=== PATIENT | male | born 1955 | race Caucasian/White ===

== ENCOUNTER → 2020-07-04 14:36 | Outpatient (BNVA) | payer BC, SELFPAY | PROVIDERS: PCP Internal Medicine; Referring Provider Internal Medicine; Visit Provider Internal Medicine Cardiovascular Disease | DX: Z76.89 Persons encountering health services in other specified circumstances (principal) ==

== ENCOUNTER 2020-07-25 07:55 | Outpatient (REF) | payer BC, SELFPAY ==
[2020-07-25 10:51] LABS: Cholesterol 150 mg/dL; HDL Cholesterol 50 mg/dL; LDL Cholesterol Calculated 84 mg/dl; Triglycerides 82 mg/dL
== END 2020-07-25 07:56 | disposition home or self-care (01) ==
LOC: HO.10HDL 07:55
PROVIDERS: Visit Provider Internal Medicine Cardiovascular Disease
DX: Z13.220 Encounter for screening for lipoid disorders (principal)
CPT/HCPCS: 80061

== ENCOUNTER 2020-08-20 09:07 | Outpatient (REF) | payer BC, SELFPAY ==
[2020-08-20 11:18] LABS: Prostate Specific Antigen 0.06 ng/mL (<0.05-4.0)
== END 2020-08-20 09:08 | disposition home or self-care (01) ==
LOC: HO.10HDL 09:07
PROVIDERS: Visit Provider Urology
DX: C61 Malignant neoplasm of prostate (principal)
CPT/HCPCS: 84153

== ENCOUNTER → 2020-10-02 10:07 | Outpatient (BNVA) | payer BC, SELFPAY | PROVIDERS: PCP Internal Medicine; Visit Provider Urology | DX: Z13.89 Encounter for screening for other disorder (principal) ==

== ENCOUNTER 2020-11-21 09:07 | Outpatient (REF) | payer BC, SELFPAY ==
[2020-11-21 12:41] LABS: Prostate Specific Antigen 0.09 ng/mL (<0.05-4.0)
== END 2020-11-21 09:08 | disposition home or self-care (01) ==
LOC: HO.10HDL 09:07
PROVIDERS: Visit Provider Urology
DX: Z12.5 Encounter for screening for malignant neoplasm of prostate (principal); C61 Malignant neoplasm of prostate
CPT/HCPCS: 36415; 84153

== ENCOUNTER → 2020-12-17 14:10 | Outpatient (BNVA) | payer BC, SELFPAY | PROVIDERS: PCP Internal Medicine; Visit Provider Urology | DX: Z13.9 Encounter for screening, unspecified (principal); R97.20 Elevated prostate specific antigen [PSA] | CPT/HCPCS: 81002 ==

== ENCOUNTER 2021-02-07 07:45 | Outpatient (REF) | payer BC, SELFPAY ==
--- NOTE | ~2021-02-07 | XR_ITS ---
EXAMINATION: XR CHEST CLINICAL INFORMATION: Chest wall pain. Question lesion. COMPARISON: Previous chest x-ray January 2016 TECHNIQUE: 2 views of the chest were obtained. FINDINGS: The cardiac and mediastinal contours are normal. The lungs are clear. There is no pleural effusion or pneumothorax. There are mild degenerative changes of the thoracic spine. Bony structures are otherwise unremarkable. XR/XR chest 2V IMPRESSION: No evidence for acute disease in the chest.
[2021-02-07 10:12] LABS: MANUAL DIFF FLAG NO
[2021-02-07 10:16] LABS: Basophils Percent Auto 0.4 % (0-2); Eosinophils Absolute Auto 0.2 X10*3/uL (0.0-0.4); Eosinophils Percent Auto 3.4 % (0-4); Hematocrit 41.5 % (42-52); Hemoglobin 14.2 g/dl (14.0-18.0); Imm Gran Abs Auto 0.03 X10*3/uL (0.00-0.03); Imm Gran Pct Auto 0.4 % (0.0-0.4); Lymphocytes Absolute Auto 1.5 X10*3/uL (1.2-4.9); Mean Corpuscular HGB Conc 34.2 g/dl (31.0-36.0); Mean Corpuscular Hemoglobin 32.3 pg (27.0-33.0); Mean Corpuscular Volume 94.5 fL (80-98); Mean Platelet Volume 11.3 fL (9.4-12.4); Monocytes Absolute Auto 0.5 X10*3/uL (0.1-1.2); Monocytes Percent Auto 6.6 % (2-11); Neutrophils Absolute Auto 4.7 X10*3/uL (2.0-8.3); Neutrophils Percent Auto 67.2 % (45-73); Platelet Count 161 X10*3/uL (160-400); Red Blood Count 4.39 X10*6/uL (4.60-5.80); Red Cell Distribution Width 12.1 % (11.0-16.0)
[2021-02-07 10:43] LABS: Alanine Aminotransferase 15 U/L (0-40); Albumin Level 4.2 g/dL (3.5-5.0); Alkaline Phosphatase 110 U/L (39-117); Anion Gap 11 (12-20); Aspartate Amino Transferase 14 U/L (5-37); Bilirubin Total 1.1 mg/dL (0.0-1.0); Blood Urea Nitrogen 16 mg/dL (9-16); C Reactive Protein 0.47 mg/dL (< or = 0.50); Calcium 9.7 mg/dL (8.4-10.2); Carbon Dioxide 26 mmol/L (22-29); Chloride 107 mmol/L (96-108); Cholesterol 145 mg/dL; Estimated Glomerular Filt Rate 58; Glucose Fasting 97 mg/dL (60-99); HDL Cholesterol 49 mg/dL; LDL Cholesterol Calculated 76 mg/dl; Potassium 4.2 mmol/L (3.3-5.1); Sodium 140 mmol/L (135-145); Total Protein 6.7 g/dL (6.5-8.0); Triglycerides 100 mg/dL
[2021-02-07 10:51] LABS: Glucose Urine UA NEG (NEG); Leukocyte Esterase Urine NEG (NEG); Nitrite Urine NEG (NEG); PH 5.5 (5.0-8.0); Specific Gravity - Urine 1.025 (1.005-1.025); Urine Blood NEG (NEG); Urine Ketones NEG (NEG); Urine Protein NEG (NEG-TRACE)
[2021-02-07 10:57] LABS: Appearance Urine CLEAR; Color Urine YELLOW
== END 2021-02-07 07:46 | disposition home or self-care (01) ==
LOC: HO.10HDL 07:45
PROVIDERS: Visit Provider Internal Medicine
DX: I25.10 Atherosclerotic heart disease of native coronary artery without angina pectoris (principal); E78.00 Pure hypercholesterolemia, unspecified; R07.89 Other chest pain
CPT/HCPCS: 36415; 71046; 80053; 80061; 81003; 85025; 86140

== ENCOUNTER 2021-06-11 08:04 | Outpatient (REF) | payer BC, MEDICARE, SELFPAY ==
[2021-06-11 11:25] LABS: Prostate Specific Antigen 0.14 ng/mL (<0.05-4.0)
== END 2021-06-11 08:05 | disposition home or self-care (01) ==
LOC: HO.10HDL 08:04
PROVIDERS: Visit Provider Urology
DX: Z12.5 Encounter for screening for malignant neoplasm of prostate (principal); C61 Malignant neoplasm of prostate; N13.8 Other obstructive and reflux uropathy; N40.1 Benign prostatic hyperplasia with lower urinary tract symptoms
CPT/HCPCS: 36415; 84153

== ENCOUNTER → 2021-06-19 13:13 | Outpatient (BNVA) | payer BC, MEDICARE, SELFPAY | PROVIDERS: PCP Internal Medicine; Visit Provider Urology ==

== ENCOUNTER → 2021-08-11 08:27 | Outpatient (BNVA) | payer BC, MEDICARE, SELFPAY | PROVIDERS: PCP Internal Medicine; Referring Provider Internal Medicine; Visit Provider Internal Medicine Cardiovascular Disease | DX: I25.10 Atherosclerotic heart disease of native coronary artery without angina pectoris (principal); E78.5 Hyperlipidemia, unspecified | CPT/HCPCS: 93005 ==

== ENCOUNTER 2021-10-07 10:43 | Outpatient (REF) | payer BC, SELFPAY ==
[2021-10-07 14:05] LABS: Prostate Specific Antigen 0.18 ng/mL (<0.05-4.0)
== END 2021-10-07 10:44 | disposition home or self-care (01) ==
LOC: HO.10HDL 10:43
PROVIDERS: Visit Provider Urology
DX: Z12.5 Encounter for screening for malignant neoplasm of prostate (principal); C61 Malignant neoplasm of prostate
CPT/HCPCS: 36415; 84153

== ENCOUNTER → 2021-10-07 10:56 | Outpatient (REF) | payer BC, SELFPAY ==
--- NOTE | 2021-10-07 11:02 | CA_ITS ---
Transthoracic Echocardiogram Patient (Last, First, Middle): Carlos Roth R Gender: Male Date of : 1955 Age: 66 Procedure Date: 10/07/2021 Procedure Type: Transthoracic Echocardiogram Location: OP Height: 182.88 cm Weight: 82.56 kg BSA: 2.05 m2 Heart Rate: bpm BP: 130 / 68 mmHg Dewer: [place] Referring MD: Amor Biggs MD Aircraft Electrical Systems Specialist: Amor Biggs MD Symptoms: I25.10 - Atherosclerotic heart disease of [place] coronary... Study Quality: Fair ECG Rhythm: Sinus Conclusions: - 1. Normal LV systolic function with grade 1 diastolic dysfunction with underlying regional wall motion abnormalities 2. Normal cardiac valvular Doppler 3. Normal RV systolic pressure 4. No gross pericardial effusion Findings Left Ventricle Normal left ventricular size, thickness, and systolic function. The visually estimated ejection fraction is between 55-60%. Spectral Doppler is indicative of an impaired relaxation filling pattern. E/E prime ratio is <8, consistent with normal filling pressures. Evidence suggests grade I (mild) diastolic dysfunction. There is mild septal asymmetric hypertrophy. Wall Motion Rest Echo Findings The mid inferior, basal inferoseptal, and basal inferolateral segments are hypokinetic. The basal inferior segment is akinetic. All other scored wall segments showed normal motion. Right Ventricle Normal right ventricular cavity size and systolic function. Atria Both atria are normal in size. There is no evidence of interatrial shunt. Aortic Valve There is mild thickening of the aortic valve. There is no aortic valve stenosis. There is no aortic valve regurgitation. Mitral Valve There is mild posterior mitral leaflet thickening. There is mild mitral annular calcification. There is trace mitral valve regurgitation. There is no mitral valve stenosis. Pulmonic Valve The pulmonic valve was not well visualized. Tricuspid Valve There is trace tricuspid valve regurgitation. The right ventricular systolic pressure is normal. The right ventricular systolic pressure is 23 mmHg. There is no evidence of pulmonary hypertension. Great Vessels All visible segments of the aorta are normal in size. The pulmonary artery was not well visualized. Venous The inferior vena cava is normal in size and collapses greater than 50% with inspiration. Pericardium/Pleural There is no evidence of pericardial effusion. Prior Study Comparison Changes noted compared to prior study dated: 06/13/2018. RV systolic pressure is normal on this study Measurements 2D Linear Measurements IVSd: 1.24 0.6-0.9/0.6-1.0 cm LVIDd: 4.65 3.9-5.3/4.2-5.9 cm LVIDd Index: 2.27 2.4-3.2/2.2-3.1 cm/m2 LVIDs: 3.39 2.0-3.6 cm LVPWd: 1.09 0.7-1.1 cm Ao Root: 3.20 2.1-3.5 cm LA Diam: 2.90 2.7-3.8/3.0-4.0 cm LAIDs Index: 1.41 1.5-2.3 cm/m2 LV Mass: 249.10 67-162/88-224 g LV Mass Index: 121.51 43-95/49-115 g/m2 LVOT Diam: 2.00 3.0+(-)1.3 cm 2D Systolic Function EF 4C: 57.90 >55% EF 2C: 54.10 >55% EF BiP: 58.00 >55% Mitral Valve MV Pk E: 0.59 MV PK A: 0.76 MV Decel Time: 369.00 E/A: 0.80 E'Lateral: 9.14 E'Medial: 6.42 E/E' Med: 9.10 E/E' Lat: 6.40 PHT: 108.00 MVA PHT: 2.04 Decel Duchesne: 1.59 Aortic Valve AoV Pk Aaron: 1.43 AoV Mn Aaron: 1.02 AoV VTI: 0.32 AoV Pk Grad: 8.00 Aov Mn Grad: 5.00 MONIQUE Cont.VTI: 2.44 LVOT LVOT Pk Aaron: 1.10 LVOT Mn Aaron: 0.72 LVOT VTI: 0.25 LVOT Pk Grad: 5.00 LVOT Mn Grad: 2.00 LVOT Diam: 2.00 LVOT Area: 3.14 Diastolic Function MV Pk E: 0.59 MV Pk A: 0.76 E/A: 0.80 E'Medial: 6.42 E/E' Med: 9.10 E' Laterial: 9.14 E/E' Lat: 6.40 Right Ventricle TAPSE (mm): 20.00 TVS' Aaron: 10.00 Tricuspid Valve TR Pk Aaron: 2.21 TR Pk Grad: 20.00 RA Press: 3.00 RVSP: 23.00 Great Vessels Aorta Ao Root-2D: 3.20 2.0-3.7 cm Ao Asc: 3.00 2.1-3.4 cm Ao Arch: 3.20 Updated in Other Vendor System with Status of Final Amor Biggs MD electronically signed on 10/07/2021 4:27:29 PM with status of Final
== END ==
LOC: HO.CARD 10:56
PROVIDERS: PCP Internal Medicine; Visit Provider Internal Medicine Cardiovascular Disease
DX: I25.10 Atherosclerotic heart disease of native coronary artery without angina pectoris (principal)
CPT/HCPCS: 93306

== ENCOUNTER → 2021-10-17 11:32 | Outpatient (BNVA) | payer BC, SELFPAY | PROVIDERS: PCP Internal Medicine; Visit Provider Urology ==

== ENCOUNTER 2022-02-04 07:58 | Outpatient (REF) | payer BC, SELFPAY ==
[2022-02-04 11:02] LABS: Prostate Specific Antigen 0.16 ng/mL (<0.05-4.0)
== END 2022-02-04 07:59 | disposition home or self-care (01) ==
LOC: HO.10HDL 07:58
PROVIDERS: Visit Provider Urology
DX: C61 Malignant neoplasm of prostate (principal)
CPT/HCPCS: 36415; 84153

== ENCOUNTER → 2022-02-13 09:48 | Outpatient (BNVA) | payer BC, SELFPAY | PROVIDERS: PCP Internal Medicine; Visit Provider Urology | DX: Z13.89 Encounter for screening for other disorder (principal) ==

== ENCOUNTER 2022-06-10 08:07 | Outpatient (REF) | payer BC, MEDICARE, SELFPAY ==
[2022-06-10 11:00] LABS: Prostate Specific Antigen 0.23 ng/mL (<0.05-4.0)
== END 2022-06-10 08:08 | disposition home or self-care (01) ==
LOC: HO.10HDL 08:07
PROVIDERS: Visit Provider Urology
DX: Z12.5 Encounter for screening for malignant neoplasm of prostate (principal); R97.21 Rising PSA following treatment for malignant neoplasm of prostate
CPT/HCPCS: 36415; 84153

== ENCOUNTER → 2022-08-11 09:08 | Outpatient (BNVA) | payer BC, MEDICARE, SELFPAY | PROVIDERS: PCP Internal Medicine; Referring Provider Internal Medicine; Visit Provider Internal Medicine Cardiovascular Disease | DX: I25.10 Atherosclerotic heart disease of native coronary artery without angina pectoris (principal); E78.5 Hyperlipidemia, unspecified | CPT/HCPCS: 93005 ==

== ENCOUNTER 2022-08-26 07:32 | Outpatient (REF) | payer BC, MEDICARE, SELFPAY ==
[2022-08-26 11:16] LABS: Cholesterol 147 mg/dL; HDL Cholesterol 49 mg/dL; LDL Cholesterol Calculated 79 mg/dl; Triglycerides 98 mg/dL
[2022-08-28 13:51] LABS: CRP High Sensitivity 2.6 mg/L
== END 2022-08-26 07:33 | disposition home or self-care (01) ==
LOC: HO.10HDL 07:32
PROVIDERS: Visit Provider Internal Medicine Cardiovascular Disease
DX: I25.10 Atherosclerotic heart disease of native coronary artery without angina pectoris (principal); E78.5 Hyperlipidemia, unspecified
CPT/HCPCS: 36415; 80061; 86141

== ENCOUNTER 2022-11-20 08:08 | Outpatient (REF) | payer BC, MEDICARE, SELFPAY ==
[2022-11-20 11:17] LABS: Prostate Specific Antigen 0.31 ng/mL (<0.05-4.0)
== END 2022-11-20 08:09 | disposition home or self-care (01) ==
LOC: HO.10HDL 08:08
PROVIDERS: Visit Provider Urology
DX: Z12.5 Encounter for screening for malignant neoplasm of prostate (principal); R97.21 Rising PSA following treatment for malignant neoplasm of prostate
CPT/HCPCS: 36415; 84153

== ENCOUNTER → 2022-12-01 13:02 | Outpatient (BNVA) | payer BC, MEDICARE, SELFPAY | PROVIDERS: PCP Internal Medicine; Visit Provider Urology | DX: Z13.89 Encounter for screening for other disorder (principal) ==

== ENCOUNTER → 2023-01-12 09:08 | Outpatient (BNVA) | payer BC, MEDICARE, SELFPAY | PROVIDERS: PCP Internal Medicine; Visit Provider Urology | DX: Z13.89 Encounter for screening for other disorder (principal) ==

== ENCOUNTER → 2023-02-05 09:20 | Outpatient (BNVA) | payer BC, MEDICARE, SELFPAY | PROVIDERS: PCP Internal Medicine; Visit Provider Urology | DX: C61 Malignant neoplasm of prostate (principal) | CPT/HCPCS: 96402; J9217 ==

== ENCOUNTER 2023-07-15 08:18 | Outpatient (REF) | payer BC, MEDICARE, SELFPAY ==
[2023-07-15 11:33] LABS: Prostate Specific Antigen < 0.10 ng/mL (<0.05-4.0)
== END 2023-07-15 08:19 | disposition home or self-care (01) ==
LOC: HO.10HDL 08:18
PROVIDERS: Visit Provider Urology
DX: C61 Malignant neoplasm of prostate (principal); Z12.5 Encounter for screening for malignant neoplasm of prostate
CPT/HCPCS: 36415; 84153

== ENCOUNTER 2023-07-28 09:20 | Outpatient (AMB) | payer BC, MEDICARE, SELFPAY ==
--- NOTE | 2023-07-28 09:22 | A.OFFVIS_ITS ---
Intake Intake Visit Reasons: 1m PSA(set) Intake Note: Patient is Present for Follow Up Urology Medication: None Antibiotic Allergies: None Blood Thinners: Aspirin Pharmacy:[facility] Allergies No Known Allergies [No Known Allergies*] Allergy (Verified 07/28/23 09:23) Medication List - Last Reconciled 07/28/23 by Eugene Paul MD aspirin (Aspir-) 81 mg PO DAILY simvastatin 20 mg PO BEDTIME HPI HPI Comments History of Present Illness Details Carlos is a very pleasant male. He is a patient of Dr. Wallace. He is seen for the following urologic conditions - prostate cancer - delayed failure with PSMA positive 01/03 3 Completed radiation Good response Does have impact from GnRH with declined libido Follow-up labs 4 months PSA and T 07/26 <0.1 04/25 6600 Gy prostate Bed - Dr Cornelius tavarez 02/23 Gn[facility] Prostate cancer - [place] 7 prostatectomy 2016 - Delayed biochemical failure 01/24 - EXB RT with 6m [facility] Diagnosed 2016 Initial pathology [place] 7 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 Initial therapy radical prostatectomy at [facility] - PSA 03/23 <0.1, 11/24 0.09, 06/24 0.14, 10/25 0.18, 02/22 0.16, 06/25 0.23, 11/26 0.31, 07/26 <0.1 Associated symptoms - erectile dysfunction but does not need indications Imaging - 07/25 PMSA Scan [facility] - reports nonspe cific changes question of lesion on L5 but low PSA, possible pablo bilateral iliac PFSH Medical History Prostate cancer Family history of cardiovascular disease Hyperlipidemia Old inferolateral myocardial infarction CAD (coronary artery disease) Surgical History History of prostate surgery (~08/2011) Hx of prostate biopsy (~2016) Hx of cholecystectomy (~01/2017) Hx of left knee surgery (~12/2014) Hx of right knee surgery (~2008) Family History Father No problems noted. Mother Afib CHF (congestive heart failure) Lymphoma Brother History of heart artery stent Paternal Grandfather Sudden cardiac Sister No problems noted. Social History Cigarettes Per Day: 4 Review of Systems Const Denies chills and Denies fever(s) Card Reports no additional complaints and Denies syncope Resp Denies cough GI Denies abdominal pain and Denies heartburn Reports as per HPI and Denies change in libido Neuro Denies syncope Psych Denies change in libido Endo Denies change in libido Physical Exam Const General: cooperative, healthy appearing, comfortable and no acute distress Orientation/consciousness: patient oriented x3 HEENT Face and sinus: Yes normal facial exam Mouth: moist mucous membranes Neck Neck: Yes normal visual inspection, Yes full ROM and Yes trachea midline Chest Chest palpation & inspection: normal inspection of the chest Resp Effort & Inspection: normal respiratory effort, able to speak in complete sentences and no respiratory distress GI Inspection: Yes normal to inspection Back/Spine/Pelvis Cervical Spine: normal cervical lordosis Thoracic/Lumbar Spine: thoracic and lumbar spine normal to inspection Skin General skin exam: no rashes or lesions noted Neuro General: patient oriented x3, gait normal, tone normal and moves all extremities Extrem General: Yes normal to inspection and Yes capillary refill normal Assessment & Plan Assessment & Plan (1) Rising PSA following treatment for malignant neoplasm of prostate: Code(s): R97.21 - Rising PSA following treatment for malignant neoplasm of prostate (2) Prostate cancer: Comment: 2017 Ryan 3+4 radical prostatectomy Code(s): C61 - Malignant neoplasm of prostate Plan Four month follow-up PSA and T Orders: Orders Testosterone, Total 4 Months R97.21 - Rising PSA following treatment for malignant neoplasm of prostate Prostate Specific Antigen 07/15/23 C61 - Malignant neoplasm of prostate Prostate Specific Antigen 4 Months R97.21 - Rising PSA following treatment for malignant neoplasm of prostate Patient Instructions: Imaging studies, laboratory and physical exam results were discussed and reviewed in detail. No major barriers to patient understanding were identified. An opportunity to ask questions regarding the treatment plan was provided. All questions were answered. The patient expressed understanding and agreement with the above treatment plan. The patient is aware they should contact our office by phone for worsening of their current condition or the appearance of new urologic symptoms. Compliance is encouraged with any medications and followup testing that is ordered. It is a privilege to participate in the urologic care of your patient. If you have any questions or concerns regarding treatment for the above conditions, or other urologic issues, please do not hesitate to contact me. The office telephone contact is [phone]. This note is constructed using voice recognition software. While every effort has been made to ensure accuracy food and beverage coordinator errors may have been included. Yours sincerely, Dr Eugene Paul MD, [facility] - Urology Providers of Expert, Compassionate Care for the Genitourinary System Coding Level of Care Code Est Pt Level 3 (22205) Diagnoses Rising PSA following treatment for malignant neoplasm of prostate R97.21 Prostate cancer C61
== END 2023-07-28 10:33 | disposition home or self-care (01) ==
PROVIDERS: PCP Internal Medicine; Visit Provider Urology
DX: R97.21 Rising PSA following treatment for malignant neoplasm of prostate (principal); C61 Malignant neoplasm of prostate
CPT/HCPCS: 99213

== ENCOUNTER → 2023-07-28 09:20 | Outpatient (BNVA) | payer BC, MEDICARE, SELFPAY | PROVIDERS: PCP Internal Medicine; Visit Provider Urology ==

== ENCOUNTER 2023-08-19 09:49 | Outpatient (AMB) | payer BC, MEDICARE, SELFPAY ==
[2023-08-19 09:56] VITALS: BP 124/80; PULSE 63; BMI 24.8
--- NOTE | 2023-08-19 09:56 | MHC.OFFVIS ---
Intake Vital Signs 08/19/23 09:56 Height 6 ft Weight 182 lb 15.739 oz BMI 24.8 BP 124/80 Blood Pressure Location Lt brachial Position Sitting Pulse 63 Intake Visit Reasons: 1 year follow up Intake Note: 1 year follow-up with ekg had [place] [facility] [place] cancer Retort Press Operator Required: No Allergies No Known Allergies [No Known Allergies*] Allergy (Verified 07/28/23 09:23) Medication List - Last Reconciled 08/19/23 by Amor Biggs MD aspirin (Aspir-) 81 mg PO DAILY simvastatin 20 mg PO BEDTIME HPI HPI Comments History of Present Illness Details Carlos comes for follow-up. Status post radiation therapy and hormonal therapy for his prostate cancer. Doing well from that perspective. His PSA is almost undetectable. He denies any cardiac symptoms. Denies any exertional chest pain or shortness of breath. Complains of mild myalgias with statin therapy. He continues to take it. Denies any other new cardiac symptoms. [facility]LY [facility] Medical History Prostate cancer Family history of cardiovascular disease Hyperlipidemia Old inferolateral myocardial infarction CAD (coronary artery disease) Surgical History History of prostate surgery (~08/2011) Hx of prostate biopsy (~2016) Hx of cholecystectomy (~01/2017) Hx of left knee surgery (~12/2014) Hx of right knee surgery (~2008) Family History Father No problems noted. Mother Afib CHF (congestive heart failure) Lymphoma Brother History of heart artery stent Paternal Grandfather Sudden cardiac Sister No problems noted. Social History Cigarettes Per Day: 4 Review of Systems Const Denies chills, Denies fatigue, Denies fever(s), Denies frequent falls, Denies weakness, Denies weight gain and Denies weight loss ENT Denies dizziness Card Denies chest pain, Denies leg edema, Denies lightheadedness, Denies palpitations, Denies dyspnea, Denies dyspnea on exertion, Denies orthopnea and Denies other (loss of consciousness) Resp Denies cough, Denies dyspnea and Denies dyspnea on exertion GI Denies hematochezia and Denies change in stool character Musc Denies abnormal gait, Denies muscle weakness, Denies numbness, Denies radiating pain into limb and Denies tingling Neuro Denies abnormal gait, Denies dizziness, Denies frequent falls, Denies numbness, Denies tingling and Denies weakness Endo Denies fatigue and Denies palpitations Physical Exam Vital Signs: Last Vital Signs Pulse 63 08/19/23 09:56 BP 124/80 08/19/23 09:56 BMI result Body Mass Index 24.8 Const General: cooperative, comfortable, no acute distress, alert and awake Nutritional Appearance: average body habitus Orientation/consciousness: patient oriented x3 Limitations: no limitations Eyes General: appearance normal, both eyes and all related structures Neck Neck: Yes full ROM, Yes trachea midline and Yes no JVD Carotids: normal carotid upstroke and no bruits Chest Chest palpation & inspection: normal inspection of the chest Resp Effort & Inspection: normal respiratory effort Auscultation: clear to auscultation bilaterally Cardio Palpation: normal PMI Rate: regular rate Rhythm: regular rhythm Heart sounds: S1 normal heart sound present and S2 normal heart sound present GI Inspection: Yes normal to inspection Auscultation: normal bowel sounds Skin General skin exam: no rashes or lesions noted, elasticity normal and turgor normal Neuro General: patient oriented x3 and no focal motor deficits Extrem General: Yes normal to inspection and Yes no clubbing, cyanosis or edema Psych Appearance: grossly normal Speech and movement: Normal speech and movement present Affect: normal affect Attitude: cooperative Thought process: Normal thought process present Insight: Good insight present (Psych) Judgement: Good judgement present (Psych) Office Procedures EKG Details: EKG shows normal sinus rhythm with early transition from V1 to V2 with tall R waves suggestive of posterior infarct, unchanged from before [id number], Complete Assessment & Plan Assessment & Plan (1) CAD (coronary artery disease): Comment: coronary artery disease with prior old silent posterior myocardial infarction. Low normal LV systolic function by last echocardiogram. He denies any new symptoms. 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 This was discussed with him. He does not still believes that he had a prior myocardial infarction. We discussed about secondary prevention of coronary artery disease. Continue lifelong aspirin therapy. We discussed about also more intense lipid modification with target goal LDL less than 70 mg/dL with scientific data suggesting the same. He is not currently interested in changing his statin therapy. Advised lipid panel in near future. He is encouraged to continue to participate in physical activity as tolerated. He understands and agrees. Will call me with any new symptoms. Code(s): I25.10 - Atherosclerotic heart disease of [place] coronary artery without angina pectoris Plan: CAD with prior silent posterior myocardial infarction without any symptoms. He has no cardiac symptoms at this point time. Continue aggressively statin therapy importance of this was discussed to prevent other event. Target goal LDL less than 70 mg/dL. Continue low-dose aspirin therapy. Advised to maintain heart healthy lifestyle. Patient is not interested in intensifying his lipid therapy due to his myalgias. Will follow up in the clinic in 1 year's time after an echocardiogram. Thank you for allowing me to partake in his care Coding Level of Care Code Est Pt Level 3 (28952) Diagnoses CAD (coronary artery disease) I25.10 CPT Codes EKG - CPT: 39891-[id number], Complete ([id number])
== END 2023-08-19 10:19 | disposition home or self-care (01) ==
PROVIDERS: Visit Provider Internal Medicine Cardiovascular Disease
DX: I25.10 Atherosclerotic heart disease of native coronary artery without angina pectoris (principal)
CPT/HCPCS: 93010; 99213

== ENCOUNTER → 2023-08-19 09:49 | Outpatient (BNVA) | payer BC, MEDICARE, SELFPAY | PROVIDERS: Visit Provider Internal Medicine Cardiovascular Disease | DX: I25.10 Atherosclerotic heart disease of native coronary artery without angina pectoris (principal) | CPT/HCPCS: 93005 ==

== ENCOUNTER 2023-08-24 08:27 | Outpatient (REF) | payer BC, MEDICARE, SELFPAY ==
[2023-08-24 10:51] LABS: Cholesterol 163 mg/dL (<200); HDL Cholesterol 53 mg/dL (>40); LDL Cholesterol Calculated 92 mg/dL (<100); Triglycerides 90 mg/dL (<150)
== END 2023-08-24 08:28 | disposition home or self-care (01) ==
LOC: HO.10HDL 08:27
PROVIDERS: Visit Provider Internal Medicine Cardiovascular Disease
DX: I25.10 Atherosclerotic heart disease of native coronary artery without angina pectoris (principal); E78.5 Hyperlipidemia, unspecified
CPT/HCPCS: 36415; 80061

== ENCOUNTER 2023-11-15 08:36 | Outpatient (REF) | payer BC, MEDICARE, SELFPAY ==
[2023-11-15 13:08] LABS: Prostate Specific Antigen < 0.10 ng/mL (<0.05-4.0)
[2023-11-19 15:13] LABS: Testosterone, Total 10 ng/dL (250-1100)
== END 2023-11-15 08:37 | disposition home or self-care (01) ==
LOC: HO.10HDL 08:36
PROVIDERS: Visit Provider Urology
DX: Z12.5 Encounter for screening for malignant neoplasm of prostate (principal); R97.20 Elevated prostate specific antigen [PSA]
CPT/HCPCS: 36415; 84153; 84403

== ENCOUNTER 2023-11-25 10:05 | Outpatient (AMB) | payer BC, MEDICARE, SELFPAY ==
--- NOTE | 2023-11-25 10:06 | MHC.OFFVIS ---
Intake Intake Visit Reasons: PSA/T Follow Up(SET) Intake Note: Patient is Present for Telephone Follow Up PSA/Testosterone Urology Med: None Antibiotic Allergy:None Blood Thinner: Aspirin Confirmed Pharmacy: [facility] Allergies No Known Allergies [No Known Allergies*] Allergy (Verified 11/25/23 10:07) HPI HPI Comments History of Present Illness Details Carlos is a very pleasant male. He is a patient of Dr. Wallace. He is seen for the following urologic conditions - prostate cancer - delayed failure with PSMA positive 01/24 Telemedicine Evaluation 15 min Consultation Doximity Quinn Video attempted Slowly improving libido 4m f/u labs 11/27 PSA <0.1 T 10 07/26 <0.1 04/25 6600 Gy prostate Bed - Dr Cornelius Pryor 02/23 [facility] Prostate cancer - [place] 7 prostatectomy 2016 - Delayed biochemical failure 01/24 - EXBRT with 6m GnRH [facility] Diagnosed 2016 Initial pathology [place] 7 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 Initial therapy radical prostatectomy at [facility] - PSA 03/23 <0.1, 11/24 0.09, 06/24 0.14, 10/25 0.18, 02/22 0.16, 06/25 0.23, 11/26 0.31, 07/26 <0.1 Associated symptoms - erectile dysfunction but does not need indications Imaging - 07/25 PMSA Scan [facility] - reports nonspecific changes question of lesion on L5 but low PSA, possible pablo bilateral iliac PFSH Medical History Prostate cancer Family history of cardiovascular disease Hyperlipidemia Old inferolateral myocardial infarction CAD (coronary artery disease) Surgical History History of prostate surgery (~08/2011) Hx of prostate biopsy (~2016) Hx of cholecystectomy (~01/2017) Hx of left knee surgery (~12/2014) Hx of right knee surgery (~2008) Family History Father No problems noted. Mother Afib CHF (congestive heart failure) Lymphoma Brother History of heart artery stent Paternal Grandfather Sudden cardiac Sister No problems noted. Social History Cigarettes Per Day: 4 Review of Systems Const All systems reviewed & are unremarkable except as noted in HPI and below Reports no additional complaints Resp Reports no additional complaints GI Reports no additional complaints Reports as per HPI Musc Reports no additional complaints Physical Exam Telemedicine evaluation Appropriate responses Regular breathing rate and rhythm HEENT Head: Yes normal to inspection Ears: hearing grossly normal bilaterally Eyes General: appearance normal, both eyes and all related structures Neck Neck: Yes normal visual inspection Chest Chest palpation & inspection: normal inspection of the chest Resp Effort & Inspection: normal respiratory effort and able to speak in complete sentences Assessment & Plan Assessment & Plan (1) Prostate cancer: Comment: 2016 [place] 3+4 radical prostatectomy Code(s): C61 - Malignant neoplasm of prostate Plan 4m f/u labs in person Orders: Orders Prostate Specific Antigen 4 Months R97.21 - Rising PSA following treatment for malignant neoplasm of prostate Testosterone, Total 4 Months R97.21 - Rising PSA following treatment for malignant neoplasm of prostate Patient Instructions: Imaging studies, laboratory and physical exam results were discussed and reviewed in detail. No major barriers to patient understanding were identified. An opportunity to ask questions regarding the treatment plan was provided. All questions were answered. The patient expressed understanding and agreement with the above treatment plan. The patient is aware they should contact our office by phone for worsening of their current condition or the appearance of new urologic symptoms. Compliance is encouraged with any medications and followup testing that is ordered. It is a privilege to participate in the urologic care of your patient. If you have any questions or concerns regarding treatment for the above conditions, or other urologic issues, please do not hesitate to contact me. The office telephone contact is [phone]. This note is constructed using voice recognition software. While every effort has been made to ensure accuracy litigation docket manager errors may have been included. Yours sincerely, Dr Eugene Paul MD, [facility] - Urology Providers of Expert, Compassionate Care for the Genitourinary System Telehealth Telehealth Location of provider rendering services: practice address Location of patient: address on file Patient Identification confirmed using: Name, : Yes Telehealth method: video Patient verbally consented to treatment: Yes Patient verbally consented to billing insurance company: Yes Patient informed of any privacy concerns related to visit: Yes Coding Level of Care Code Tele Est Pt Level 3 (68678) Diagnoses Prostate cancer C61
== END 2023-11-25 11:21 | disposition home or self-care (01) ==
LOC: HO.HUSH 10:05
PROVIDERS: PCP Internal Medicine; Referring Provider Internal Medicine; Visit Provider Urology
DX: C61 Malignant neoplasm of prostate (principal)
CPT/HCPCS: 99213

== ENCOUNTER → 2023-11-25 10:05 | Outpatient (BNVA) | payer BC, MEDICARE, SELFPAY | PROVIDERS: PCP Internal Medicine; Visit Provider Urology ==

== ENCOUNTER 2024-03-16 08:34 | Outpatient (REF) | payer BC, MEDICARE, SELFPAY ==
[2024-03-16 11:28] LABS: Prostate Specific Antigen < 0.10 ng/mL (<0.05-4.0)
[2024-03-23 13:34] LABS: Testosterone, Total 215 ng/dL (250-1100)
== END 2024-03-16 08:35 | disposition home or self-care (01) ==
LOC: HO.10HDL 08:34
PROVIDERS: Visit Provider Urology
DX: R97.21 Rising PSA following treatment for malignant neoplasm of prostate (principal); Z12.5 Encounter for screening for malignant neoplasm of prostate
CPT/HCPCS: 36415; 84153; 84403

== ENCOUNTER 2024-03-24 08:29 | Outpatient (AMB) | payer MEDICARE, BC, SELFPAY ==
--- NOTE | 2024-03-24 08:29 | A.OFFVIS_ITS ---
Intake Visit Reasons: 4M PSA/Testo(pending) Intake Note: Pt presents to the office today for a 4 month PSA/Testo. Blood thinners: aspirin Urology meds-none Allergies No Known Allergies [No Known Allergies*] Allergy (Verified 03/24/24 08:30) HPI Comments Details: Carlos is a very pleasant male. He is a patient of Dr. Wallace. He is seen for the following urologic conditions - prostate cancer - delayed failure with PSMA positive 01/24 Significant improvement of testosterone Would like to move to six-month follow-up This will be organized 03/27 <0.1 T 220 11/27 PSA <0.1 T 10 07/26 <0.1 04/25 6600 Gy prostate Bed - Dr Cornelius Pryor 02/23 GnRH Prostate cancer - [place] 7 prostatectomy 2016 - Delayed biochemical failure 01/24 - EXBRT with 6m GnRH [facility] Diagnosed 2016 Initial pathology [place] 7 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 Initial therapy radical prostatectomy at [facility] - PSA 03/23 <0.1, 11/24 0.09, 06/24 0.14, 10/25 0.18, 02/22 0.16, 06/25 0.23, 11/26 0.31, 07/26 <0.1 Associated symptoms - erectile dysfunction but does not need indications Imaging - 07/25 PMSA Scan [facility] - reports nonspecific changes question of lesion on L5 but low PSA, possible pablo bilateral iliac PFSH Medical History Prostate cancer Family history of cardiovascular disease Hyperlipidemia Old inferolateral myocardial infarction CAD (coronary artery disease) Surgical History History of prostate surgery (~08/2011) Hx of prostate biopsy (~2016) Hx of cholecystectomy (~01/2017) Hx of left knee surgery (~12/2014) Hx of right knee surgery (~2008) Family History Father No problems noted. Mother Afib CHF (congestive heart failure) Lymphoma Brother History of heart artery stent Paternal Grandfather Sudden cardiac Sister No problems noted. Social History Cigarettes Per Day: 4 Assessment & Plan Assessment & Plan (1) Prostate cancer: Comment: 2017 [place] 3+4 radical prostatectomy Code(s): C61 - Malignant neoplasm of prostate Category: Medical Plan Six-month follow-up Orders: Orders Prostate Specific Antigen 6 Months C61 - Malignant neoplasm of prostate Testosterone, Total 6 Months C61 - Malignant neoplasm of prostate Patient Instructions: Imaging studies, laboratory and physical exam results were discussed and reviewed in detail. No major barriers to patient understanding were identified. An opportunity to ask questions regarding the treatment plan was provided. All questions were answered. The patient expressed understanding and agreement with the above treatment plan. The patient is aware they should contact our office by phone for worsening of their current condition or the appearance of new urologic symptoms. Compliance is encouraged with any medications and followup testing that is ordered. It is a privilege to participate in the urologic care of your patient. If you have any questions or concerns regarding treatment for the above conditions, or other urologic issues, please do not hesitate to contact me. The office tele phone contact is [phone]. This note is constructed using voice recognition software. While every effort has been made to ensure accuracy supervisor coke handling errors may have been included. Yours sincerely, Dr Eugene Paul MD, [facility] - Urology Providers of Expert, Compassionate Care for the Genitourinary System Coding Level of Care Code Est Pt Level 3 (98411) Diagnoses Prostate cancer C61
== END 2024-03-24 08:49 | disposition home or self-care (01) ==
PROVIDERS: PCP Internal Medicine; Visit Provider Urology
DX: C61 Malignant neoplasm of prostate (principal)
CPT/HCPCS: 99213

== ENCOUNTER → 2024-03-24 08:29 | Outpatient (BNVA) | payer BC, MEDICARE, SELFPAY | PROVIDERS: PCP Internal Medicine; Visit Provider Urology ==

== ENCOUNTER → 2024-07-31 10:50 | Outpatient (REF) | payer MEDICARE, SELFPAY ==
--- NOTE | 2024-07-31 10:56 | CA_ITS ---
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 The calculated ejection fraction is 54% by biplane method. - The basal inferior and basal inferolateral segments are akinetic. - No obvious valvular pathology seen on this study. Findings Left Ventricle Normal left ventricular cavity size. There is mildly increased left ventricular wall thickness. The left ventricular systolic function is low normal. The calculated ejection fraction is 54% by biplane method. There is no evidence of regional wall motion abnormalities. Diastolic function is normal for age. Wall Motion Rest Echo Findings The basal inferior and basal inferolateral segments are akinetic. Right Ventricle Normal right ventricular cavity size and systolic function. Atria Both atria are normal in size. Aortic Valve There is a normal trileaflet aortic valve. There is no aortic valve stenosis. There is no aortic valve regurgitation. Mitral Valve The mitral valve appears normal. There is trace mitral valve regurgitation. There is no mitral valve stenosis. Pulmonic Valve The pulmonic valve is likely normal. Tricuspid Valve There is trace tricuspid valve regurgitation. There is no evidence of pulmonary hypertension. Great Vessels The asc aorta is normal in size. Venous The inferior vena cava is normal in size and collapses greater than 50% with inspiration. Pericardium/Pleural There is no evidence of pericardial effusion. Prior Study Comparison No significant change compared to prior study dated: 10/07/2021. Recommendations, Care & Conclusions No obvious valvular pathology seen on this study. Measurements 2D Linear Measurements IVSd: 1.12 0.6-0.9/0.6-1.0 cm LVIDd: 4.64 3.9-5.3/4.2-5.9 cm LVIDd Index: 2.30 2.4-3.2/2.2-3.1 cm/m2 LVIDs: 3.25 2.0-3.6 cm LVPWd: 1.09 0.7-1.1 cm Ao Root: 2.90 2.1-3.5 cm LA Diam: 3.50 2.7-3.8/3.0-4.0 cm LAIDs Index: 1.73 1.5-2.3 cm/m2 LV Mass: 230.38 67-162/88-224 g LV Mass Index: 114.05 43-95/49-115 g/m2 LVOT Diam: 2.10 3.0+(-)1.3 cm 2D Systolic Function EF 4C: 62.20 >55% EF 2C: 54.30 >55% EF BiP: 54.30 >55% Mitral Valve MV Pk E: 0.80 MV PK A: 0.85 MV Decel Time: 241.00 E/A: 0.90 E'Lateral: 12.80 E'Medial: 4.35 E/E' Med: 18.30 E/E' Lat: 6.20 PHT: 71.00 MVA PHT: 3.10 Decel Sheridan: 3.30 LVOT LVOT Pk Aaron: 1.00 LVOT Mn Aaron: 0.59 LVOT VTI: 0.24 LVOT Pk Grad: 4.00 LVOT Mn Grad: 2.00 LVOT Diam: 2.10 LVOT Area: 3.46 Diastolic Function MV Pk E: 0.80 MV Pk A: 0.85 E/A: 0.90 E'Medial: 4.35 E/E' Med: 18.30 E' Laterial: 12.80 E/E' Lat: 6.20 Right Ventricle TAPSE (mm): 21.00 TVS' Aaron: 11.00 Tricuspid Valve TR Pk Aaron: 2.58 TR Pk Grad: 27.00 RA Press: 3.00 RVSP: 30.00 Great Vessels Aorta Ao Root-2D: 2.90 2.0-3.7 cm Ao Asc: 3.40 2.1-3.4 cm Pulmonary Valve PV Pk Aaron: 1.06 Peak PV Grad: 4.00 Updated in Other Vendor System with Status of Final Deshaun Albrecht MD electronically signed on 08/01/2024 12:58:08 PM with status of Final
== END ==
LOC: HO.CARD 10:50
PROVIDERS: PCP Internal Medicine; Visit Provider Internal Medicine Cardiovascular Disease
DX: I25.2 Old myocardial infarction (principal)
CPT/HCPCS: 93306

== ENCOUNTER → 2024-07-31 10:56 | Outpatient (BNV) | payer MEDICARE, SELFPAY | PROVIDERS: PCP Internal Medicine; Visit Provider Internal Medicine | DX: I25.2 Old myocardial infarction (principal) | CPT/HCPCS: 93306 ==

== ENCOUNTER 2024-08-10 13:36 | Outpatient (AMB) | payer BC, MEDICARE, SELFPAY ==
[2024-08-10 13:46] VITALS: BP 120/62; PULSE 65; BMI 23.0
--- NOTE | 2024-08-10 13:46 | A.OFFVIS_ITS ---
Vital Signs 08/10/24 13:46 Height 6 ft Weight 169 lb 12.095 oz BMI 23.0 BP 120/62 Blood Pressure Location Lt brachial Position Sitting Pulse 65 Pulse Source Monitor Intake Visit Reasons: 1 yr fu Allergies No Known Allergies [No Known Allergies*] Allergy (Verified 03/24/24 08:30) Medication List - Last Reconciled 08/10/24 by Tony Gee RN aspirin (Aspir-) 81 mg PO DAILY simvastatin 40 mg PO BEDTIME HPI Comments Details: Carlos comes for follow-up. Overall he has been doing well. He maintains high level activity without any exertional symptoms of chest pain or shortness of breath. Takes his simvastatin but he is concerned about joint aches and muscle aches and has been cutting down the simvastatin dose to 20 mg a day. Recent echocardiogram shows low normal LVEF of 54% with basal inferior inferolateral wall motion abnormality without any major valvular abnormalities. Takes aspirin. [facility] Medical History Prostate cancer Family history of cardiovascular disease Hyperlipidemia Old inferolateral myocardial infarction CAD (coronary artery disease) Surgical History History of prostate surgery (~08/2011) Hx of prostate biopsy (~2016) Hx of cholecystectomy (~01/2017) Hx of left knee surgery (~12/2014) Hx of right knee surgery (~2008) Family History Father No problems noted. Mother Afib CHF (congestive heart failure) Lymphoma Brother History of heart artery stent Paternal Grandfather Sudden cardiac Sister No problems noted. Social History Cigarettes Per Day: 4 Review of Systems Const Denies weakness ENT Denies dizziness Card Denies chest pain, Denies chest pain with activity, Denies syncope, Denies rapid heart rate, Denies pedal edema, Denies edema, Denies leg edema, Denies lightheadedness, Denies palpitations, Denies dyspnea, Denies dyspnea on exertion and Denies orthopnea Resp Denies cough, Denies dyspnea and Denies dyspnea on exertion GI Denies hematochezia and Denies change in stool character Musc Denies abnormal gait, Denies muscle cramps, Denies muscle weakness, Denies numbness, Denies radiating pain into limb and Denies tingling Neuro Denies abnormal gait, Denies dizziness, Denies syncope, Denies numbness, Denies tingling and Denies weakness Endo Denies palpitations Physical Exam Vital Signs: Last Vital Signs Pulse 65 08/10/24 13:46 BP 120/62 08/10/24 13:46 BMI result Body Mass Index 23.0 Const General: cooperative, comfortable, no acute distress, alert and awake Nutritional Appearance: average body habitus Orientation/consciousness: patient oriented x3 Limitations: no limitations Eyes General: appearance normal, both eyes and all related structures Neck Neck: Yes full ROM, Yes trachea midline and Yes no JVD Carotids: normal carotid upstroke and no bruits Chest Chest palpation & inspection: normal inspection of the chest Resp Effort & Inspection: normal respiratory effort Auscultation: clear to auscultation bilaterally Cardio Palpation: normal PMI Rate: regular rate Rhythm: regular rhythm Heart sounds: S1 normal heart sound present and S2 normal heart sound present GI Inspection: Yes normal to inspection Auscultation: normal bowel sounds Skin General skin exam: no rashes or lesions noted, elasticity normal and turgor normal Neuro General: patient oriented x3 and no focal motor deficits Extrem General: Yes normal to inspection and Yes no clubbing, cyanosis or edema Psych Appearance: grossly normal Speech and movement: Normal speech and movement present Affect: normal affect Attitude: cooperative Thought process: Normal thought process present Insight: Good insight present (Psych) Judgement: Good judgement present (Psych) Office Procedures EKG Details: EKG shows normal sinus rhythm with early transition to V2 of R-wave consistent with prior posterior CO as well as nonspecific T-wave changes [id number], Complete Assessment & Plan Assessment & Plan (1) CAD (coronary artery disease): Comment: coronary artery disease with prior old silent posterior myocardial infarction. Low normal LV systolic function by last echocardiogram. He denies any new symptoms. 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 This was discussed with him. He does not still believes that he had a prior myocardial infarction. We discussed about secondary prevention of coronary artery disease. Continue lifelong aspirin therapy. We discussed about also more intense lipid modification with target goal LDL less than 70 mg/dL with scientific data suggesting the same. He is not currently interested in changing his statin therapy. Advised lipid panel in near future. He is encouraged to continue to participate in physical activity as tolerated. He understands and agrees. Will call me with any new symptoms. Code(s): I25.10 - Atherosclerotic heart disease of [place] coronary artery without angina pectoris Category: Medical Plan: CAD with prior silent posterior myocardial infarction without any recurrent symptoms at this point time. Importance of continued medical therapy was discussed with him. Continue low-dose aspirin therapy for life. Given his muscle and joint ache will switch his simvastatin to rosuvastatin. Importance of taking his statin therapy was discussed with him in details. If he continues to have symptoms related to this we can add ezetimibe to his regimen to try to target goal LDL less than 70 mg/dL. Advised to maintain activity level as tolerated. Follow-up lipid panel in 2 months time. Will follow up in the clinic in 1 year's time, sooner p.r.n.. Thank you for allowing me to partake in his care Orders: Orders Lipid Panel 2 Months E78.5 - Hyperlipidemia, unspecified, I25.10 - Atherosclerotic heart disease of [place] coronary artery without angina pectoris Medications: New rosuvastatin 10 mg PO DAILY 90 tabs 3RF Discontinued simvastatin Discontinued Reason: Doctor's Order 40 mg PO BEDTIME 90 tabs 3RF Coding Level of Care Code Est Pt Level 4 (71058) Complex EM visit Add On G2211 Diagnoses CAD (coronary artery disease) I25.10 CPT Codes EKG - CPT: 81230-[id number], Complete ([id number])
== END 2024-08-10 14:10 | disposition home or self-care (01) ==
LOC: HO.HCS 13:36
PROVIDERS: PCP Internal Medicine; Visit Provider Internal Medicine Cardiovascular Disease
DX: I25.10 Atherosclerotic heart disease of native coronary artery without angina pectoris (principal)
CPT/HCPCS: 93010; 99214

== ENCOUNTER → 2024-08-10 13:36 | Outpatient (BNVA) | payer BC, MEDICARE, SELFPAY | PROVIDERS: PCP Internal Medicine; Visit Provider Internal Medicine Cardiovascular Disease | DX: I25.10 Atherosclerotic heart disease of native coronary artery without angina pectoris (principal); I25.2 Old myocardial infarction; Z79.82 Long term (current) use of aspirin | CPT/HCPCS: 93005 ==

== ENCOUNTER 2024-08-15 08:08 | Outpatient (REF) | payer BC, MEDICARE, SELFPAY ==
[2024-08-15 11:24] LABS: Cholesterol 130 mg/dL (<200); HDL Cholesterol 54 mg/dL (>40); LDL Cholesterol Calculated 61 mg/dL (<100); Triglycerides 77 mg/dL (<150)
== END 2024-08-15 08:09 | disposition home or self-care (01) ==
LOC: HO.10HDL 08:08
PROVIDERS: Visit Provider Internal Medicine Cardiovascular Disease
DX: I25.10 Atherosclerotic heart disease of native coronary artery without angina pectoris (principal); E78.5 Hyperlipidemia, unspecified
CPT/HCPCS: 36415; 80061

== ENCOUNTER 2024-09-12 08:08 | Outpatient (REF) | payer BC, MEDICARE, SELFPAY ==
[2024-09-12 11:46] LABS: Prostate Specific Antigen < 0.10 ng/mL (<0.05-4.0)
[2024-09-16 17:32] LABS: Testosterone, Total 224 ng/dL (250-1100)
== END 2024-09-12 08:09 | disposition home or self-care (01) ==
LOC: HO.10HDL 08:08
PROVIDERS: Visit Provider Urology
DX: Z12.5 Encounter for screening for malignant neoplasm of prostate (principal); C61 Malignant neoplasm of prostate
CPT/HCPCS: 36415; 84153; 84403

== ENCOUNTER 2024-09-22 08:57 | Outpatient (AMB) | payer BC, MEDICARE, SELFPAY ==
--- NOTE | 2024-09-22 08:57 | A.OFFVIS_ITS ---
Intake Visit Reasons: 6m/PSA/Testo Intake Note: Patient is present for 6M/PSA/TESTO Urology Medication:NONE Antibiotic Allergy:NONE Blood Thinner:ASPIRIN Director Of Diagnostic Imaging Required: No Allergies No Known Allergies [No Known Allergies*] Allergy (Verified 09/22/24 08:58) HPI Comments Details: Carlos is a very pleasant male. He is a patient of Dr. Wallace. He is seen for the following urologic conditions - prostate cancer - initial therapy prostatectomy 201617 grade group 3 - delayed failure with PSMA positive 01/24 Telemedicine Evaluation 15 min Consultation [employer] [facility] Video Discussed results Continue follow-up Q six-month Voiding stable 09/26 <0.1 T 224 03/27 <0.1 T 220 11/27 PSA <0.1 T 10 - hot flashes 07/26 <0.1 04/25 6600 Gy prostate Bed - Dr Cornelius Pryor 02/23 [facility] Prostate cancer - [place] 7 prostatectomy 2016 - Delayed biochemical failure 01/24 - EXBRT with 6m [facility] Diagnosed 2016 Initial pathology [place] 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 Initial therapy radical prostatectomy at [facility] - PSA 03/23 <0.1, 11/24 0.09, 06/24 0.14, 10/25 0.18, 02/22 0.16, 06/25 0.23, 11/26 0.31, 07/26 <0.1 Associated symptoms - erectile dysfunction but does not need indications Imaging - 07/25 PMSA Scan [facility] - reports nonspecific changes question of lesion on L5 but low PSA, possible pablo bilateral iliac PFSH Medical History Prostate cancer Family history of cardiovascular disease Hyperlipidemia Old inferolateral myocardial infarction CAD (coronary artery disease) Surgical History History of prostate surgery (~08/2011) Hx of prostate biopsy (~2016) Hx of cholecystectomy (~01/2017) Hx of left knee surgery (~12/2014) Hx of right knee surgery (~2008) Family History Father No problems noted. Mother Afib CHF (congestive heart failure) Lymphoma Brother History of heart artery stent Paternal Grandfather Sudden cardiac Sister No problems noted. Social History Cigarettes Per Day: 4 Review of Systems Const All systems reviewed & are unremarkable except as noted in HPI and below Reports no additional complaints Resp Reports no additional complaints GI Reports no additional complaints Reports as per HPI Musc Reports no additional complaints Physical Exam Telemedicine evaluation Appropriate responses Regular breathing rate and rhythm HEENT Head: Yes normal to inspection Ears: hearing grossly normal bilaterally Eyes General: appearance normal, both eyes and all related structures Neck Neck: Yes normal visual inspection Chest Chest palpation & inspection: normal inspection of the chest Resp Effort & Inspection: normal respiratory effort and able to speak in complete sentences Telehealth Telehealth Location of provider rendering services: practice address Location of patient: address on file Patient Identification confirmed using: Name, : Yes Telehealth method: voice only Patient verbally consented to treatment: Yes Patient verbally consented to billing insurance company: Yes Patient informed of any privacy concerns related to visit: Yes Assessment & Plan Assessment & Plan (1) Prostate cancer: Comment: 2016 [place] 3+4 radical prostatectomy Code(s): C61 - Malignant neoplasm of prostate Category: Medical Plan Six-month follow-up Orders: Orders Testosterone, Total 6 Months C61 - Malignant neoplasm of prostate Prostate Specific Antigen 6 Months C61 - Malignant neoplasm of prostate Patient Instructions: Imaging studies, laboratory and physical exam results were discussed and reviewed in detail. No major barriers to patient understanding were identified. An opportunity to ask questions regarding the treatment plan was provided. All questions were answered. The patient expressed understanding and agreement with the above treatment plan. The patient is aware they should contact our office by phone for worsening of their current condition or the appearance of new urologic symptoms. Compliance is encouraged with any medications and followup testing that is ordered. It is a privilege to participate in the urologic care of your patient. If you have any questions or concerns regarding treatment for the above conditions, or other urologic issues, please do not hesitate to contact me. The office telephone contact is [phone]. This note is constructed using voice recognition software. While every effort has been made to ensure accuracy passenger car conductor errors may have been included. Yours sincerely, Dr Eugene Paul MD, [facility] - Urology Providers of Expert, Compassionate Care for the Genitourinary System Coding Level of Care Code Tele Est Pt Level 3 (27170) Diagnoses Prostate cancer C61
== END 2024-09-22 10:01 | disposition home or self-care (01) ==
LOC: HO.HUSH 08:57
PROVIDERS: PCP Internal Medicine; Visit Provider Urology
DX: C61 Malignant neoplasm of prostate (principal)
CPT/HCPCS: 99442

== ENCOUNTER → 2024-09-22 08:57 | Outpatient (BNVA) | payer BC, MEDICARE, SELFPAY | PROVIDERS: PCP Internal Medicine; Visit Provider Urology ==

== ENCOUNTER 2025-03-12 08:20 | Outpatient (REF) | payer MEDICARE, SELFPAY ==
[2025-03-12 10:32] LABS: Prostate Specific Antigen < 0.10 ng/mL (<0.05-4.0)
[2025-03-19 01:49] LABS: Testosterone, Total 222 ng/dL (250-1100)
== END 2025-03-12 08:21 | disposition home or self-care (01) ==
LOC: HO.10HDL 08:20
PROVIDERS: Visit Provider Urology
DX: C61 Malignant neoplasm of prostate (principal); Z12.5 Encounter for screening for malignant neoplasm of prostate
CPT/HCPCS: 36415; 84153; 84403

== ENCOUNTER 2025-03-22 09:47 | Outpatient (AMB) | payer MEDICARE, SELFPAY ==
--- NOTE | 2025-03-22 09:49 | MHC.OFFVIS ---
Intake Visit Reasons: 6m/PSA/Testo Intake Note: Patient is present for 6M/PSA/TESTO Urology Medication:NONE Antibiotic Allergy:NONE Blood Thinner:ASPIRIN Beam Sealer Required: No Allergies No Known Allergies (No Known Allergies*) Allergy (Verified 03/22/25 09:50) HPI Comments Details: Carlos is a very pleasant male. He is a patient of Dr. Wallace. He is seen for the following urologic conditions - prostate cancer - initial therapy prostatectomy 201617 grade group 3 - delayed failure with PSMA positive 01/24 Discussed results Continue follow-up Q six-month Voiding stable Six-month follow-up lab work tele 02/23 [facility], 04/25 6600 Gy prostate Bed - Dr Cornelius Pryor, 07/26 <0.1, 11/27 PSA <0.1 T 10 - hot flashes, 03/27 <0.1 T 220, 09/26 <0.1 T 224, 03/28 <0.1 T 222 Prostate cancer - [place] 7 prostatectomy 2016 - Delayed biochemical failure 01/24 - EXBRT with 6m [facility] - completed 06/26 Diagnosed 2016 Initial pathology [place] 7 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 Initial therapy radical prostatectomy at [facility] - PSA 03/23 <0.1, 11/24 0.09, 06/24 0.14, 10/25 0.18, 02/22 0.16, 06/25 0.23, 11/26 0.31, 07/26 <0.1 Associated symptoms - erectile dysfunction but does not need indications Imaging - 07/25 PMSA Scan [facility] - reports nonspecific changes question of lesion on L5 but low PSA, possible pablo bilateral iliac PFSH Medical History Prostate cancer Family history of cardiovascular disease Hyperlipidemia Old inferolateral myocardial infarction CAD (coronary artery disease) Surgical History History of prostate surgery (~08/2011) Hx of prostate biopsy (~2016) Hx of cholecystectomy (~01/2017) Hx of left knee surgery (~12/2014) Hx of right knee surgery (~2008) Family History Father No problems noted. Mother Afib CHF (congestive heart failure) Lymphoma Brother History of heart artery stent Paternal Grandfather Sudden cardiac Sister No problems noted. Social History Cigarettes Per Day: 4 Review of Systems Const Denies chills and Denies fever(s) Card Reports no additional complaints and Denies syncope Resp Denies cough GI Denies abdominal pain and Denies heartburn Reports as per HPI and Denies change in libido Neuro Denies syncope Psych Denies change in libido Endo Denies change in libido Physical Exam Const General: cooperative, healthy appearing, comfortable and no acute distress Orientation/consciousness: patient oriented x3 HEENT Face and sinus: Yes normal facial exam Mouth: moist mucous membranes Neck Neck: Yes normal visual inspection, Yes full ROM and Yes trachea midline Chest Chest palpation & inspection: normal inspection of the chest Resp Effort & Inspection: normal respiratory effort, able to speak in complete sentences and no respiratory distress GI Inspection: Yes normal to inspection Back/Spine/Pelvis Cervical Spine: normal cervical lordosis Thoracic/Lumbar Spine: thoracic and lumbar spine normal to inspection Skin General skin exam: no rashes or lesions noted Neuro General: patient oriented x3, gait normal, tone normal and moves all extremities Extrem General: Yes normal to inspection and Yes capillary refill normal Assessment & Plan Assessment & Plan (1) Prostate cancer: Comment: 2017 [place] 3+4 radical prostatectomy Code(s): C61 - Malignant neoplasm of prostate Category: Medical (2) Rising PSA following treatment for malignant neoplasm of prostate: Code(s): R97.21 - Rising PSA following treatment for malignant neoplasm of prostate Category: Medical Plan Six-month follow-up lab work Orders: Orders Prostate Specific Antigen 6 Months R97.21 - Rising PSA following treatment for malignant neoplasm of prostate Testosterone, Total 6 Months R97.21 - Rising PSA following treatment for malignant neoplasm of prostate Patient Instructions: This note is constructed using voice recognition software. While every effort has been made to ensure accuracy principal quality engineer errors may have been included. Imaging studies, laboratory and physical exam results were discussed and reviewed in detail. No major barriers to patient understanding were identified. An opportunity to ask questions regarding the treatment plan was provided. All questions were answered. The patient expressed understanding and agreement with the above treatment plan. The patient is aware they should contact our office by phone for worsening of their current condition or the appearance of new urologic symptoms. Compliance is encouraged with any medications and followup testing that is ordered. It is a privilege to participate in the urologic care of your patient. If you have any questions or concerns regarding treatment for the above conditions, or other urologic issues, please do not hesitate to contact me. The office telephone contact is [phone]. Sincerely, Dr Eugene Paul MD, [facility] - Urology Compassionate Specialist Care for the Genitourinary System Coding Level of Care Code Est Pt Level 3 (82330) Complex EM visit Add On G2211 Diagnoses Prostate cancer C61 Rising PSA following treatment for malignant neoplasm of prostate R97.21
== END 2025-03-22 10:16 | disposition home or self-care (01) ==
LOC: HO.HUSH 09:48
PROVIDERS: PCP Internal Medicine; Visit Provider Urology
DX: C61 Malignant neoplasm of prostate (principal); R97.21 Rising PSA following treatment for malignant neoplasm of prostate
CPT/HCPCS: 99213; G2211

== ENCOUNTER → 2025-03-22 09:47 | Outpatient (BNVA) | payer MEDICARE, SELFPAY | PROVIDERS: PCP Internal Medicine; Visit Provider Urology | DX: C61 Malignant neoplasm of prostate (principal); R97.21 Rising PSA following treatment for malignant neoplasm of prostate | CPT/HCPCS: 99212 ==

== ENCOUNTER 2025-08-22 09:24 | Outpatient (AMB) | payer MEDICARE, SELFPAY ==
[2025-08-22 09:28] VITALS: BP 124/72; PULSE 52; BMI 21.5
--- NOTE | 2025-08-22 09:28 | MHC.OFFVIS ---
Vital Signs 08/22/25 09:28 Height 6 ft Weight 158 lb 4.67 oz BMI 21.5 BP 124/72 Blood Pressure Location Lt brachial Position Sitting Pulse 52 Pulse Source Monitor Intake Visit Reasons: 1 yr follow up Intake Note: 1 YEAR FOLLOW UP Business Process Consultant Required: No Accompanied by: Self / Same As Patient Allergies No Known Allergies (No Known Allergies*) Allergy (Verified 08/22/25 09:32) Medication List - Last Reconciled 08/22/25 by Amor Biggs MD aspirin (Aspir-) 81 mg PO DAILY simvastatin 20 mg PO BEDTIME HPI Comments Details: Carlos comes for follow-up. He has been doing well from cardiac perspective overall. He said he remains very active. Denies any chest pain or shortness of breath. Patient says that he walks 4 miles without any issues. He plays golf and walks 18 holes without issues. Takes his medication but he is not completely forthcoming about his statin dose. Has not had any recent lipid panel. Denies any orthopnea, PND, leg edema. No lightheadedness, syncope. [facility] Medical History Prostate cancer Family history of cardiovascular disease Hyperlipidemia Old inferolateral myocardial infarction CAD (coronary artery disease) Surgical History History of prostate surgery (~08/2011) Hx of prostate biopsy (~2016) Hx of cholecystectomy (~01/2017) Hx of left knee surgery (~12/2014) Hx of right knee surgery (~2008) Family History Father No problems noted. Mother Afib CHF (congestive heart failure) Lymphoma Brother History of heart artery stent Paternal Grandfather Sudden cardiac Sister No problems noted. Social History Cigarettes Per Day: 4 Review of Systems Const Denies daytime sleepiness, Denies difficulty sleeping, Denies snoring, Denies stops breathing during sleep and Denies weakness Card Denies chest pain, Denies rapid heart rate, Denies irregular heart rhythm, Denies claudication, Denies leg edema, Denies lightheadedness, Denies palpitations, Denies dyspnea, Denies dyspnea on exertion, Denies orthopnea, Denies paroxysmal nocturnal dyspnea and Denies slow heart rate Resp Denies cough, Denies dyspnea, Denies dyspnea on exertion and Denies snoring GI Reports no additional complaints, Denies hematochezia, Denies change in stool character and Denies dyspepsia Musc Denies abnormal gait, Denies muscle weakness and Denies numbness Neuro Denies abnormal gait, Denies numbness and Denies weakness Endo Denies palpitations Physical Exam Vital Signs: Last Vital Signs Pulse 52 08/22/25 09:28 BP 124/72 08/22/25 09:28 BMI result Body Mass Index 21.5 Const General: cooperative, comfortable, no acute distress, alert and awake Nutritional Appearance: average body habitus Orientation/consciousness: patient oriented x3 Limitations: no limitations Eyes General: appearance normal, both eyes and all related structures Neck Neck: Yes full ROM, Yes trachea midline and Yes no JVD Carotids: normal carotid upstroke and no bruits Chest Chest palpation & inspection: normal inspection of the chest Resp Effort & Inspection: normal respiratory effort Auscultation: clear to auscultation bilaterally Cardio Palpation: normal PMI Rate: regular rate Rhythm: regular rhythm Heart sounds: S1 normal heart sound present and S2 normal heart sound present GI Inspection: Yes normal to inspection Auscultation: normal bowel sounds Skin General skin exam: no rashes or lesions noted, elasticity normal and turgor normal Neuro General: patient oriented x3 and no focal motor deficits Extrem General: Yes normal to inspection and Yes no clubbing, cyanosis or edema Psych Appearance: grossly normal Speech and movement: Normal speech and movement present Affect: normal affect Attitude: cooperative Thought process: Normal thought process present Insight: Good insight present (Psych) Judgement: Good judgement present (Psych) Office Procedures EKG Details: EKGs shows sinus bradycardia with prior inferoposterior VT, unchanged from before [id number], Complete Assessment & Plan Assessment & Plan (1) CAD (coronary artery disease): Comment: coronary artery disease with prior old silent posterior myocardial infarction. Low normal LV systolic function by last echocardiogram. He denies any new symptoms. 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 This was discussed with him. He does not still believes that he had a prior myocardial infarction. We discussed about secondary prevention of coronary artery disease. Continue lifelong aspirin therapy. We discussed about also more intense lipid modification with target goal LDL less than 70 mg/dL with scientific data suggesting the same. He is not currently interested in changing his statin therapy. Advised lipid panel in near future. He is encouraged to continue to participate in physical activity as tolerated. He understands and agrees. Will call me with any new symptoms. Code(s): I25.10 - Atherosclerotic heart disease of [place] coronary artery without angina pectoris Category: Medical Plan: CAD with prior silent inferoposterior myocardial infarction without any obvious symptoms at that time. Patient continues to have no symptoms with exertion. He has done well over the last many years. His LV ejection fraction has low normal but that has no signs of congestive heart failure. Continue low-dose aspirin therapy. Importance of lipid modification with target goal LDL less than 70 mg/dL was discussed aggressively. He has not most compliant with the statin doses. Will pursue lipid panel in near future. Will follow up in the clinic in 1 year's time, sooner PRN after an echocardiogram. Thank you for allowing me to partake in his care Orders: Orders Lipid Panel Today I25.10 - Atherosclerotic heart disease of [place] coronary artery without angina pectoris Coding Level of Care Code Est Pt Level 4 (63079) Complex EM visit Add On G2211 Diagnoses CAD (coronary artery disease) I25.10 CPT Codes EKG - CPT: 33331-[id number], Complete ([id number])
--- OUTSIDE RECORDS SUMMARY | 2025-08-22 17:19 | XMS_ITS | Patient Health Record ---
Author Organization [facility] Address [address] [place] [address] Care Team Providers Care Oem Sales Manager Name Role Phone Rodrigo (RETIRED) Michael ROSS Primary Care Provide r Rashard Figueroa Jr Unavailable [phone] Reason For Referral No Information Medications Medication SIG (Take, Route, Frequency, Duration) Notes Start Date End Date Status Colyte with Flavor Packs 240 GM Solution Reconstituted As directed Orally Over the specified time.; Duration: 1 day(s) 09/23/2016 Active Social History Social History Additional Details Category Social Info Options Details Miscellaneous: Marital status: single Occupation: sales Problems Problem Type SNOMED Code ICD Code Onset Dates Problem Status W/U Status Risk Notes Problem Colon cancer screening (169273631) Colon cancer screening (Z12.11) Active confirmed Problem Rectal bleeding (12118389) Rectal bleeding (K62.5) Active confirmed Problem Long-term current use of antiplatelet drug (832684106729444) [facility] (current) use of aspirin (Z79.82) Active confirmed Plan Of Treatment Future Test Test Name Order Date COLONOSCOPY 09/23/2016 Insurance Providers Payer Name Payer Address Payer Phone Subscriber Number Group Number Insured Name Patient Relationship to Insured Coverage Start Date Coverage End Date [facility] [employer] PROFESSIONAL CLAIMS [address] [place] [address] [id number] [address] CAO Self - patient is the insured Medical (General) History Medical History History ICD Code colonoscopy 01-15-2006 colon polyps hepatitis A history of circumferential n arrowing of the pyloric channel with small ulceration on the basis of chronic peptic ulcer disease hiatal hernia Denies DM,CVA,Lung disease,renal disease ?? mild heart attack Surgical History Surgery Date(Month/Year) tonsillectomy cholecystectomy left knee arthroscopy right knee arthroscopy
== END 2025-08-22 09:48 | disposition home or self-care (01) ==
LOC: HO.HCS 09:25
PROVIDERS: PCP Internal Medicine; Visit Provider Internal Medicine Cardiovascular Disease
DX: I25.10 Atherosclerotic heart disease of native coronary artery without angina pectoris (principal)
CPT/HCPCS: 93010; 99214; G2211

== ENCOUNTER 2025-08-22 09:54 | Outpatient (REF) | payer MEDICARE, SELFPAY ==
[2025-08-22 11:33] LABS: Prostate Specific Antigen < 0.10 ng/mL (<0.05-4.0)
== END 2025-08-22 09:55 | disposition home or self-care (01) ==
LOC: HO.10HDL 09:54
PROVIDERS: Visit Provider Urology
DX: Z12.5 Encounter for screening for malignant neoplasm of prostate (principal); R97.21 Rising PSA following treatment for malignant neoplasm of prostate; R00.1 Bradycardia, unspecified
CPT/HCPCS: 36415; 84153; 84403; 93005; 99212

== ENCOUNTER 2025-08-23 08:13 | Outpatient (REF) | payer MEDICARE, SELFPAY ==
[2025-08-23 11:43] LABS: Cholesterol 131 mg/dL (<200); HDL Cholesterol 59 mg/dL (>40); Triglycerides 57 mg/dL (<150)
== END 2025-08-23 08:14 | disposition home or self-care (01) ==
LOC: HO.10HDL 08:13
PROVIDERS: Visit Provider Internal Medicine Cardiovascular Disease
DX: I25.10 Atherosclerotic heart disease of native coronary artery without angina pectoris (principal)
CPT/HCPCS: 36415; 80061

== ENCOUNTER 2025-09-18 12:45 | Outpatient (AMB) | payer MEDICARE, SELFPAY ==
--- NOTE | 2025-09-18 12:27 | MHC.OFFVIS ---
Intake Visit Reasons: 6m/PSA/Testo/SET Allergies No Known Allergies (No Known Allergies*) Allergy (Verified 08/22/25 09:32) HPI Comments Details: Carlos is a very pleasant male. He is a patient of Dr. Wallace. He is seen for the following urologic conditions - prostate cancer - initial therapy prostatectomy 201617 grade group 3 - delayed failure with PSMA positive 01/24 Telemedicine Evaluation 15 min Consultation [employer] Quinn Video Discussed results Continue follow-up Q six-month Voiding stable Six-month follow-up lab work tele 02/23 [facility], 04/25 6600 Gy prostate Bed - Dr Cornelius Pryor, 07/26 <0.1, 11/27 PSA <0.1 T 10 - hot flashes, 03/27 <0.1 T 220, 09/26 <0.1 T 224, 03/28 <0.1 T 222, 08/28 <0.1 T 175 Prostate cancer - [place] 7 prostatectomy 2016 - Delayed biochemical failure 01/24 - EXBRT with 6m [facility] - completed 06/26 Diagnosed 2016 Initial pathology Ryan 7 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 Initial therapy radical prostatectomy at [facility] - PSA 03/23 <0.1, 11/24 0.09, 06/24 0.14, 10/25 0.18, 02/22 0.16, 06/25 0.23, 11/26 0.31, 07/26 <0.1 Associated symptoms - erectile dysfunction but does not need indications Imaging - 07/25 PMSA Scan [facility] - reports nonspecific changes question of lesion on L5 but low PSA, possible pablo bilateral iliac PFSH Medical History Prostate cancer Family history of cardiovascular disease Hyperlipidemia Old inferolateral myocardial infarction CAD (coronary artery disease) Surgical History History of prostate surgery (~08/2011) Hx of prostate biopsy (~2016) Hx of cholecystectomy (~01/2017) Hx of left knee surgery (~12/2014) Hx of right knee surgery (~2008) Family History Father No problems noted. Mother Afib CHF (congestive heart failure) Lymphoma Brother History of heart artery stent Paternal Grandfather Sudden cardiac Sister No problems noted. Social History Cigarettes Per Day: 4 Telehealth Telehealth Telehealth Platform: [employer] Location of provider rendering services: practice address Location of patient: address on file Patient Identification confirmed using: Name, : Yes Telehealth method: video Patient verbally consented to treatment: Yes Patient verbally consented to billing insurance company: Yes Patient informed of any privacy concerns related to visit: Yes Minutes spent on Phone/Video with Pt.: 15 Assessment & Plan Assessment & Plan (1) Prostate cancer: Comment: 2016 Ryan 3+4 radical prostatectomy Code(s): C61 - Malignant neoplasm of prostate Category: Medical (2) Rising PSA following treatment for malignant neoplasm of prostate: Code(s): R97.21 - Rising PSA following treatment for malignant neoplasm of prostate Category: Medical Plan Six-month follow-up Orders: Orders Testosterone, Total 6 Months C61 - Malignant neoplasm of prostate Prostate Specific Antigen 6 Months C61 - Malignant neoplasm of prostate Lutenizing Hormone 6 Months C61 - Malignant neoplasm of prostate, E11.69 - Type 2 diabetes mellitus with other specified complication, N52.1 - Erectile dysfunction due to diseases classified elsewhere Patient Instructions: This note is constructed using voice recognition software. While every effort has been made to ensure accuracy photography and prints curator errors may have been included. Imaging studies, laboratory and physical exam results were discussed and reviewed in detail. No major barriers to patient understanding were identified. An opportunity to ask questions regarding the treatment plan was provided. All questions were answered. The patient expressed understanding and agreement with the above treatment plan. The patient is aware they should contact our office by phone for worsening of their current condition or the appearance of new urologic symptoms. Compliance is encouraged with any medications and followup testing that is ordered. It is a privilege to participate in the urologic care of your patient. If you have any questions or concerns regarding treatment for the above conditions, or other urologic issues, please do not hesitate to contact me. The office telephone contact is [phone]. Sincerely, Dr Eugene Paul MD, [facility] - Urology Compassionate Specialist Care for the Genitourinary System Coding Level of Care Code Tele Est Pt Level 3 (02663) Add On Problem Visit Only Diagnoses Prostate cancer C61 Rising PSA following treatment for malignant neoplasm of prostate R97.21
--- OUTSIDE RECORDS SUMMARY | 2025-09-18 16:32 | XMS_ITS | Patient Health Record ---
Author Organization [facility] Address [address] [place] [address] Care Team Providers Care [employer] Tutor Name Role Phone Rodrigo (RETIRED) Michael ROSS Primary Care Provide r Rashard Figueroa Jr Unavailable Reason For Referral No Information Medications Medication [...] Status Risk Notes Problem Colon cancer screening (110287016) Colon cancer screening (Z12.11) Active confirmed Problem Rectal bleeding (30080717) Rectal bleeding (K62.5) Active confirmed Problem Long-term current use of antiplatelet drug ([id number]) shelter (current) use of aspirin (Z79.82) Active confirmed Plan Of Treatment Future Test Test Name Order Date COLONOSCOPY 09/23/2016 Insurance Providers Payer Name Payer Address Payer Phone Subscriber Number Group Number Insured Name Patient Relationship to Insured Coverage Start Date Coverage End Date [facility] [employer] PROFESSIONAL CLAIMS [address] [place] [address] [phone] [id number] UYEN CAO Self - patient is [...]
== END 2025-09-18 16:32 | disposition home or self-care (01) ==
LOC: HO.HUSH 12:46
PROVIDERS: PCP Internal Medicine; Visit Provider Urology
DX: C61 Malignant neoplasm of prostate (principal); R97.21 Rising PSA following treatment for malignant neoplasm of prostate
CPT/HCPCS: 99213; G2211